=== PATIENT | male | born 1990 | race Hispanic/Latino ===

== ENCOUNTER 2017-01-27 16:17 | Observation (INO) | payer OTHER ==
[2017-01-27 16:23] VITALS: RESP 16
--- NOTE | 2017-01-27 17:08 | C.PDOC ---
History Of Present Illness 26 y/o male presents to the ED requesting alcohol detox. Pt with history alcohol abuse, drinks 2-3 pints liquor today; drank 1/2 pint today. Pt denies vomiting, chest pain, SOB, fever or any other complaints at this time. PMHx depression, anxiety. Time Seen by Provider: 01/27/17 16:55 Chief Complaint (Nursing): Substance Abuse History Per: Patient History/Exam Limitations: no limitations Current Symptoms Are (Timing): Still Present Suicide/Self Injury Attempted (Context): None Modifying Factor(s): Alcohol Severity: Mild Involuntary Hold By: None Recent travel outside of the [place]: No Past Medical History Reviewed: Historical Data, Nursing Documentation, Vital Signs Vital Signs: Last Vital Signs Temp 98.4 F 01/27/17 16:20 Pulse 84 01/27/17 16:20 Resp 16 01/27/17 16:20 BP 134/79 01/27/17 16:20 Pulse Ox 95 01/27/17 20:14 Family History: States: Unknown Family Hx - Social History Hx Alcohol Use: Yes Hx Substance Use: Yes Review Of Systems Except As Marked, All Systems Reviewed And Found Negative. Constitutional: Negative for: Fever Cardiovascular: Negative for: Chest Pain Respiratory: Negative for: Shortness of Breath Gastrointestinal: Negative for: Vomiting Physical Exam - Physical Exam Appears: Non-toxic, No Acute Distress Skin: Warm, Dry, No Rash Head: Atraumatic, Normacephalic Neck: Normal, Normal ROM, Supple Chest: Symmetrical Cardiovascular: Rhythm Regular, No Murmur Respiratory: Normal Breath Sounds, No Rales, No Rhonchi, No Wheezing Gastrointestinal/Abdominal: Normal Exam, Soft, No Tenderness, No Guarding, No Rebound Extremity: Normal ROM Extremity: Bilateral: Atraumatic Neurological/Psych: Oriented x3, Normal Speech, Normal Motor, Normal Sensation, Other (mild tremor) ED Course And Treatment - Laboratory Results Result Diagrams: 01/27/17 18:24 01/27/17 17:38 Lab Interpretation: No Acute Changes O2 Sat by Pulse Oximetry: 95 (room air) Pulse Ox Interpretation: Normal Progress Note: Pt seen earlier today at [place] for alcohol detox; complaint of SI. Plan: UA, labs. 8:10 Patient is medically cleared but there are no detox beds at this time. He will remain in ED observation and will return to [facility] in the morning. ED OBSERVATION Date of observation admission: 01/27/17 Time of observation admission: 20:13 - Observation admission statement Patient is being placed in observation because:: alcohol intoxication - Goals of Observation Goals of observation are:: sobriety and return to [facility] in the morning. - Progress Note Progress Note: 01/27/17 23:22 Patient sleeping quietly. Disposition - Disposition Disposition Time: 00:00 Condition: STABLE - Clinical Impression Clinical Impression: Alcohol abuse, Alcohol-induced mood disorder - Scribe Statement The provider has reviewed the documentation as recorded by the Duy Aleman Provider Attestation: All medical record entries made by the Duy were at my direction and personally dictated by me. I have reviewed the chart and agree that the record accurately reflects my personal performance of the history, physical exam, medical decision making, and the department course for this patient. I have also personally directed, reviewed, and agree with the discharge instructions and disposition. Physician Patient Turnover Patient Signed Over To: Wm Tadeo Handoff Comments: Pending sobriety and discharge to [facility] in the morning.
[2017-01-27 17:48] LABS: CHLORIDE 100 mmol/L (98-107); SODIUM 139 mmol/L (132-148)
[2017-01-27 17:49] LABS: POTASSIUM 3.7 mmol/L (3.6-5.2)
[2017-01-27 17:51] LABS: ALB/GLOB RATIO 1.7 (1.0-2.1); ALKALINE PHOSPHATASE 64 U/L (38-126); ALT/SGPT 38 U/L (21-72); AST/SGOT 31 U/L (17-59); BILIRUBIN,TOTAL 0.9 mg/dL (0.2-1.3); BLOOD UREA NITROGEN 17 mg/dL (9-20); CALCIUM 7.8 mg/dl (8.6-10.4); CARBON DIOXIDE 25 mmol/L (22-30); GFR AFRICAN-AMERICAN > 60; GLUCOSE,RANDOM 74 mg/dL (75-110); TOTAL PROTEIN 6.8 g/dL (6.3-8.3)
[2017-01-27 17:52] LABS: ALCOHOL SERUM 149 mg/dl (0-10)
[2017-01-27 18:26] LABS: RBC URINE < 1 /hpf (0-3); URINE BILIRUBIN NEGATIVE (NEGATIVE); URINE BLOOD NEGATIVE (NEGATIVE); URINE COLOR Yellow (YELLOW); URINE GLUCOSE (UA) NORMAL (Normal); URINE KETONE NEGATIVE (NEGATIVE); URINE LEUKOCYTE ESTERASE NEG Leu/uL (Negative); URINE PROTEIN NEGATIVE (NEGATIVE); URINE UROBILINOGEN NORMAL mg/dL (0.2-1.0); WBC URINE < 1 /hpf (0-5)
[2017-01-27 18:44] LABS: BASO % 0.6 % (0.0-2.0); EOS # 0.1 K/uL (0.0-0.7); EOS % 1.3 % (0.0-4.0); HEMATOCRIT 41.6 % (35.0-51.0); LYMPH % 31.5 % (20.0-40.0); MEAN CELL VOLUME 91.3 fL (80.0-94.0); MEAN CORPUSCULAR HEMOGLOBIN 30.7 pg (27.0-31.0); MEAN CORPUSCULAR HGB CONC 33.7 g/dL (33.0-37.0); MEAN PLATELET VOLUME 8.1 fL (7.2-11.7); MONO # 0.4 K/uL (0.0-0.8); MONO % 5.9 % (0.0-10.0); RED CELL DISTRIBUTION WIDTH 13.5 % (11.5-14.5); WHITE BLOOD COUNT 6.2 K/uL (4.8-10.8)
[2017-01-28 06:04] VITALS: BP 136/77; PULSE 54; TEMP 97.7; O2SAT 99
== END 2017-01-28 05:55 | disposition home or self-care (01) ==
LOC: C.ER 16:17 → C.9OBSV 20:14
PROVIDERS: ADMIT Emergency Medicine; ATTEND Emergency Medicine
DX: F10.14 Alcohol abuse with alcohol-induced mood disorder (principal); F10.120 Alcohol abuse with intoxication, uncomplicated; F12.10 Cannabis abuse, uncomplicated; Y90.6 Blood alcohol level of 120-199 mg/100 ml
CPT/HCPCS: 80053; 81001; 82948; 85025; G0378; G0480

== ENCOUNTER 2017-01-28 11:51 | Inpatient (IN) | payer SELFPAY ==
[2017-01-28 12:24] LABS: BASO % 0.5 % (0.0-2.0); EOS # 0.1 K/uL (0.0-0.7); EOS % 0.9 % (0.0-4.0); HEMATOCRIT 42.4 % (35.0-51.0); LYMPH # 1.2 K/uL (1.0-4.3); LYMPH % 20.8 % (20.0-40.0); MEAN CELL VOLUME 90.2 fL (80.0-94.0); MEAN CORPUSCULAR HEMOGLOBIN 30.7 pg (27.0-31.0); MONO # 0.4 K/uL (0.0-0.8); MONO % 7.2 % (0.0-10.0)
[2017-01-28 12:26] LABS: RBC URINE 2 /hpf (0-3); URINE BILIRUBIN NEGATIVE (NEGATIVE); URINE BLOOD NEGATIVE (NEGATIVE); URINE COLOR Yellow (YELLOW); URINE GLUCOSE (UA) NORMAL (Normal); URINE KETONE TRACE mg/dL (NEGATIVE); URINE LEUKOCYTE ESTERASE NEG Leu/uL (Negative); URINE PROTEIN NEGATIVE (NEGATIVE); URINE UROBILINOGEN NORMAL mg/dL (0.2-1.0); WBC URINE 1 /hpf (0-5)
[2017-01-28 12:32] LABS: CHLORIDE 99 mmol/L (98-107); POTASSIUM 3.9 mmol/L (3.6-5.2); SODIUM 139 mmol/L (132-148)
[2017-01-28 12:34] LABS: GFR AFRICAN-AMERICAN > 60
[2017-01-28 12:35] LABS: ALB/GLOB RATIO 1.5 (1.0-2.1); ALKALINE PHOSPHATASE 79 U/L (38-126); ALT/SGPT 38 U/L (21-72); AST/SGOT 39 U/L (17-59); BILIRUBIN,TOTAL 1.8 mg/dL (0.2-1.3); BLOOD UREA NITROGEN 17 mg/dL (9-20); CALCIUM 8.8 mg/dl (8.6-10.4); CARBON DIOXIDE 25 mmol/L (22-30); GLUCOSE,RANDOM 92 mg/dL (75-110); TOTAL PROTEIN 7.5 g/dL (6.3-8.3)
[2017-01-28 12:36] LABS: ALCOHOL SERUM 51 mg/dl (0-10)
--- NOTE | 2017-01-28 13:28 | C.PDOC ---
History Of Present Illness 26 y/o male with Hx of ETOH abuse and anxiety depression brought to ED by EMS after being reported hallucinating and having suicidal thoughts at [facility] crisis clinic. As per EMS patient stated " He did not want to live anymore because of his addiction". Patient reports drinking 2 pints of ETOH daily and admits to drinking 1/2 a pint this morning. Patient's last treatment for anxiety depression was 2 years ago. No other complaints at this time Time Seen by Provider: 01/28/17 13:15 Chief Complaint (Nursing): Psychiatric Evaluation History Per: Patient History/Exam Limitations: no limitations Onset/Duration Of Symptoms: Days Current Symptoms Are (Timing): Still Present Modifying Factor(s): Alcohol Associated Symptoms: Anxiety, Depression. denies: Suicidal Plan Past Medical History Reviewed: Historical Data, Nursing Documentation, Vital Signs Vital Signs: Last Vital Signs Temp 98.9 F 01/28/17 11:55 Pulse 80 01/28/17 11:55 Resp 18 01/28/17 11:55 BP 138/90 01/28/17 11:55 Pulse Ox 98 01/28/17 13:28 - Medical History PMH: Anxiety, Depression Family History: States: Unknown Family Hx - Social History Hx Alcohol Use: Yes Hx Substance Use: Yes - Immunization History Hx Tetanus Toxoid Vaccination: No Hx Influenza Vaccination: No Hx Pneumococcal Vaccination: No Review Of Systems Except As Marked, All Systems Reviewed And Found Negative. Constitutional: Negative for: Fever, Chills Gastrointestinal: Negative for: Nausea, Vomiting, Diarrhea Skin: Negative for: Rash Neurological: Negative for: Weakness, Headache, Dizziness Psych: Positive for: Anxiety, Depression, Suicidal ideation Physical Exam - Physical Exam Appears: No Acute Distress Skin: Normal Color, Warm Head: Atraumatic, Normacephalic Oral Mucosa: Moist Cardiovascular: Rhythm Regular Respiratory: Normal Breath Sounds, No Rales, No Rhonchi, No Wheezing Extremity: Normal ROM Neurological/Psych: Oriented x3 ED Course And Treatment - Laboratory Results Result Diagrams: 01/28/17 12:19 01/28/17 12:19 O2 Sat by Pulse Oximetry: 98 (RA) Pulse Ox Interpretation: Normal Medical Decision Making Medical Decision Makin:52pm : On re-evaluation patient is sleeping and calm in room Disposition - Disposition Disposition: HOSPITALIZED Disposition Time: 13:26 Condition: GUARDED - Clinical Impression Clinical Impression: Alcohol abuse, Acute depression - PA / [employer] / Resident Statement MD/DO has reviewed & agrees with the documentation as recorded. MD/DO has examined the patient and agrees with the treatment plan. - Scribe Statement The provider has reviewed the documentation as recorded by the Duy Stevenson All medical record entries made by the Duy were at my direction and personally dictated by me. I have reviewed the chart and agree that the record accurately reflects my personal performance of the history, physical exam, medical decision making, and the department course for this patient. I have also personally directed, reviewed, and agree with the discharge instructions and disposition. Decision To Admit - Pt Status Changed To: Hospital Disposition Of: Inpatient - Admit Certification Admit to Inpatient:: After my assessment, the patient will require hospitalization for at least two midnights. This is because of the severity of symptoms shown, intensity of services needed, and/or the medical risk in this patient being treated as an outpatient. - InPatient: Physician Admission Certification: I certify that this patient requires 2 or more midnights of care for the following reason:: needs inpatient psych - . Bed Request Type: Psychiatry Patient Diagnosis: Alcohol abuse, Acute depression
[2017-01-28 14:11] VITALS: O2SAT 98
[2017-01-28] MEDS: Multiple Vitamins Tab PO SCH (15:44)
[2017-01-29] MEDS: Multiple Vitamins Tab PO SCH (10:07)
--- NOTE | 2017-01-29 12:30 | PCM.PSYCH ---
Initial Psychiatric Evaluation - Initial Psychiatric Evaluation Type of Admission: Voluntary Legal Status: Capacity Chief Complaint (in patient's own words): I just want to end it all History of Present Illness and Precipitating Events: Patient is 26 year male who lives with roommates in [place]. Patient' s highest level of education is college. 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 He states it would just be easier to "end everything." He has a history of alcohol abuse that began at age 16 and says he cannot stop drinking, which is making him depressed and suicidal. He drinks 2-3 pints of hard liquor/day, and his last drink was yesterday. Patient states he drinks enough in the morning to hold off withdrawal symptoms. He also puts vodka in water bottles to drink throughout the day. Patient first realized his alcohol use was problematic at age 21 when others began mentioning it to him, as he was choosing alcohol over family and work obligations. Patient denies any suicide attempts, and states that it would just be easier if he was . He states he would not be able to kill himself while he is sober. Patient states he has a history of depression and last saw a psychiatrist 10 years ago when he was freshman in college for depression and anxiety. He states he took the medications for a while but then stopped because he thought he could just get over it and didn't think mental illness was real. Patient was also hospitalized at [facility] in 2012 for withdrawal hallucinations, both auditory and visual. He has had severe withdrawal 5 times, and states he saw shadows and snakes, and thought people were talking about him when they weren't. Patient states that his mind is constantly racing and he used alcohol and marijuana to slow his mind down, saying, "I didn't stop thinking about it, I just stopped caring about it." He states he has social anxiety and obsesses over things like if he upset someone or not. He states he has a problem finishing things that he starts, and has lots of plans, jobs, and trips planned. On exam, his affect is blunted and depressed. He is shaking and saying he is in withdrawal, for which he is getting librium. He complains of shakes, headaches, chills, sweating, and severe anxiety. He reports auditory hallucinations that someone is calling his name visual hallucinations and reports persecutory delusions that people are following him. On discharge, patient wants to go to in-patient rehab because he does not trust himself to be around alcohol. PMH: unknown Allergies: none Current Medications: Active Medications Generic Name Dose Route Start Last Admin Trade Name Freq PRN Reason Stop Dose Admin Benztropine Mesylate 2 mg 01/28/17 13:31 Cogentin PO Q6 PRN Extra Pyramidal Symptoms Chlordiazepoxide 50 mg 01/28/17 13:31 01/29/17 10:07 Librium PO 50 mg Q4 PRN Administration Symptoms of alcohol withdrawl Chlordiazepoxide 25 mg 01/28/17 18:00 01/28/17 23:00 Librium PO 02/02/17 17:59 25 mg Q6 BETINA Administration Taper Folic Acid 1 mg 01/28/17 13:45 01/29/17 10:08 Folic Acid PO 1 mg DAILY BETINA Administration Haloperidol 5 mg 01/28/17 13:31 Haldol PO Q8 PRN Moderate Agitation Haloperidol Lactate 5 mg 01/28/17 13:31 Haldol IM Q8 PRN Moderate Agitation Multivitamins 1 tab 01/28/17 13:45 01/29/17 10:07 Hexavitamin PO 1 tab DAILY BETINA Administration Thiamine HCl 100 mg 01/28/17 13:45 01/29/17 10:07 Vitamin B1 Tab PO 100 mg DAILY BETINA Administration Trazodone HCl 50 mg 01/28/17 22:00 01/28/17 22:57 Desyrel PO 50 mg HS BETINA Administration Past Psychiatric History - Past Psychiatric History Previous Treatment History: None Pertinent Medical Hx (Current Medical&Sleep Prob, Allergies): Allergies Allergy/AdvReac Type Severity Reaction Status Date / Time No Known Allergies Allergy Verified 01/28/17 12:07 No Known Home Med 01/27/17 Review of Systems - Review of Systems All systems: reviewed and no additional remarkable complaints except - Psychiatric Psychiatric: Anxiety, Irritability, Mood Swings, Suicidal Ideation Mental Status Examination - Personal Presentation Personal Presentation: Looks older than stated age - Affect Affect: Constricted, Depressed - Motor Activity Motor Activity: Psychomotor Retardation - Reliability in Providing Information Reliability in Providing Information: Poor, due to alteration in thoughts, Poor , due to altered mood - Speech Speech: Disorganized - Mood Mood: Depressed, Anxious - Formal Thought Process Formal Thought Process: Delusions, Paranoia, Flight of ideas - Hallucinations/Delusions Hallucinations: Auditory Delusions: Persecution - Obsessions/Compulsions Obsessions: No Compulsions: No - Cognitive Functions Orientation: Person, Place, Situation, Time Sensorium: Alert Attention/Concentration: Attentive Abstract Thinking: Wayne Estimate of Intelligence: Below average Judgement: Imparied, as evidence by: Poor judgement, Imparied, as evidence by: Lack of insight into illness - Risk Risk: Suicidal, Withdrawal, Diminished functioning - Strength & Assets Inventory Strength & Assets Inventory: Cooperative DSM 5 DX - DSM 5 DSM 5 Diagnosis: Bipolar disorder mixed severe with psychotic features Alcohol use disorder severe Alcohol withdrawal uncomplicated - Recommended/Plan of Treatment Treatment Recommendations and Plan of Treatment: Bipolar disorder mixed severe with psychotic features CBT Psychoeducation Supportive therapy, group therapy, individual therapy Zoloft 25 mg by mouth daily Neurontin 300 mg by mouth 3 times a day Trazodone 50 mg by mouth daily at bedtime Alcohol use disorder severe CBT Psychoeducation Supportive therapy, individual therapy Use [place] for abstinence Alcohol withdrawal uncomplicated CBT Psychoeducation Supportive therapy, individual therapy Librium when necessary Start Librium taper Start folic acid/thiamine/multivitamin - Smoking Cessation Smoking Cessation Initiated: No
[2017-01-30] MEDS: Multiple Vitamins Tab PO SCH (10:34)
--- NOTE | 2017-01-30 18:13 | PCM.PYCHPN ---
Psychiatric Progress Note - Psychiatric Progress Note Patient seen today, length of contact: 15 minutes Patient Chief Complaint: I'm feeling much better Problems Identified/Issues Discussed: Patient seen. Chart reviewed. Case discussed with the staff. Issues related to illness and treatment were discussed with the patient. Reported compliant with treatment with no adverse affects. Tolerating treatment very well. Patient is on Librium detox protocol. Patient reported no suicidal ideations with treatment. At the time of evaluation, she was awake alert oriented 3, had no delusions, no auditory or visual hallucinations, no suicidal ideations or homicidal ideations. Medical Problems: None reported Diagnostic Results: Review DSM 5 Symptoms Update: Improvement in symptoms Medication Change: No Medical Record Reviewed: Yes Mental Status Examination - Cognitive Function Orientation: Person, Place, Situation, Time Memory: Intact Attention: WNL Concentration: WNL Association: WNL Fund of Knowledge: [facility] Decription of patient's judgement and insights: Fair - Mood Mood: Depressed - Affect Affect: Depressed - Speech Speech: Appropriate - Formal Thought Process Formal Thought Process: No Impairment - Suicidal Ideation Suicidal Ideation: No - Homicidal Ideation Homicidal Ideation: No Goal/Treatment Plan - Goal/Treatment Plan Need for Continued Stay: Remain at risks for inpatient hospitalization, Discharge may exacerbated symptoms, Severe functional impairment Progress Toward Problem(s) and Goals/Treatment Plan: Patient education Supportive therapy Continue treatment as before Estimated Date of D/C: 02/05/17 - Smoking Cessation Smoking Cessation Initiated: Yes
[2017-01-31] MEDS: Multiple Vitamins Tab PO SCH (09:10)
--- NOTE | 2017-01-31 16:07 | PCM.PYCHPN ---
Psychiatric Progress Note - Psychiatric Progress Note Patient seen today, length of contact: 15 minutes Patient Chief Complaint: I'm feeling much better Problems Identified/Issues Discussed: Patient seen. Chart reviewed. Case discussed with the staff. Issues related to illness and treatment were discussed with the patient. Reported compliant with treatment with no adverse affects. Tolerating treatment very well. Patient is on Librium detox protocol. Patient reported no suicidal ideations with treatment. At the time of evaluation, she was awake alert oriented 3, had no delusions, no auditory or visual hallucinations, no suicidal ideations or homicidal ideations. Medical Problems: None reported Diagnostic Results: Review DSM 5 Symptoms Update: Improving with treatment Medication Change: No Medical Record Reviewed: Yes Mental Status Examination - Cognitive Function Orientation: Person, Place, Situation, Time Memory: Intact Attention: WNL Concentration: WNL Association: WNL Fund of Knowledge: [facility] Decription of patient's judgement and insights: Fair - Mood Mood: Depressed - Affect Affect: Depressed - Speech Speech: Appropriate - Formal Thought Process Formal Thought Process: No Impairment Psychotic Thoughts and Behaviors: None - Suicidal Ideation Suicidal Ideation: No - Homicidal Ideation Homicidal Ideation: No Goal/Treatment Plan - Goal/Treatment Plan Need for Continued Stay: Remain at risks for inpatient hospitalization, Discharge may exacerbated symptoms, Severe functional impairment Progress Toward Problem(s) and Goals/Treatment Plan: Patient education Supportive therapy Continue treatment as before Estimated Date of D/C: 02/05/17 - Smoking Cessation Smoking Cessation Initiated: Yes
[2017-02-01] MEDS: Multiple Vitamins Tab PO SCH (09:56)
--- NOTE | 2017-02-01 10:07 | PCM.PYCHPN ---
Psychiatric Progress Note - Psychiatric Progress Note Patient seen today, length of contact: 15 minutes Patient Chief Complaint: 'I feel tired.' Problems Identified/Issues Discussed: Patient seen and evaluated, chart reviewed and discussed with the nurse. The patient says he has suffered from major depression most of his life and was diagnosed with depression and anxiety 10 years ago and self-medicated with pot and alcohol. He says that his grandfather in 2012 and his grandmother about 1 month ago which worsened his depression. He states that he suffers from panic attacks about once a month with each episode lasting about 10-15min. He states that these episodes are brought on by social events. He also complains of anxiety and states that he feeling very depressed and suicidal and he doesnt want to live anymore. He denies any auditory hallucinations currently but stated that yesterday he was seeing shadows and black things crawling on the cormier, visual hallucinations. He also reports persecutory delusions. He says that he slept well after having taken Trazodone last night. He appears to be very depressed, isolated, has a flat affect but is kempt and has organized speech. He is taking medication and denies any side effects Medication Change: Yes (increase Zoloft, start Risperdal) Medical Record Reviewed: Yes Mental Status Examination - Cognitive Function Orientation: Person, Place, Situation, Time Memory: Intact Attention: Poor Concentration: Poor Association: Loose Fund of Knowledge: Poor - Mood Mood: Depressed, Anxious - Affect Affect: Constricted, Depressed - Speech Speech: Appropriate, Soft - Formal Thought Process Formal Thought Process: Hallucinations, Delusions - Suicidal Ideation Suicidal Ideation: No - Homicidal Ideation Homicidal Ideation: No Goal/Treatment Plan - Goal/Treatment Plan Need for Continued Stay: Remain at risks for inpatient hospitalization, Discharge may exacerbated symptoms, Severe functional impairment Progress Toward Problem(s) and Goals/Treatment Plan: Bipolar disorder mixed severe with psychotic features CBT Psychoeducation Supportive therapy, group therapy, individual therapy Zoloft 100 mg by mouth daily Risperdal 0.5 mg by mouth twice a day Neurontin 300 mg by mouth 3 times a day Trazodone 50 mg by mouth daily at bedtime Alcohol use disorder severe CBT Psychoeducation Supportive therapy, individual therapy Use [place] for abstinence Alcohol withdrawal uncomplicated CBT Psychoeducation Supportive therapy, individual therapy Librium when necessary Librium taper Folic acid/thiamine/multivitamin Estimated Date of D/C: 02/05/17 - Smoking Cessation Smoking Cessation Initiated: No
[2017-02-02] MEDS: Multiple Vitamins Tab PO SCH (09:51)
--- NOTE | 2017-02-02 15:53 | PCM.PYCHPN ---
Psychiatric Progress Note - Psychiatric Progress Note Patient seen today, length of contact: 15 minutes Patient Chief Complaint: 'I m still feeling depressed' Problems Identified/Issues Discussed: Patient seen and evaluated, chart reviewed and discussed with the nurse. As per the staff, patient still appears isolated, depressed and withdrawn. Patient reports improvement in his and improvement in the voices were still reports depressed mood and at times feelings of hopelessness or helplessness. However he denies any suicidal ideation or homicidal ideation. He is taking medication and denies any side effects. Supportive therapy and psychoeducation were given. Medication Change: Yes (increase Zoloft, start Risperdal) Medical Record Reviewed: Yes Mental Status Examination - Cognitive Function Orientation: Person, Place, Situation, Time Memory: Intact Attention: WNL Concentration: Poor Association: WNL Fund of Knowledge: Poor - Mood Mood: Depressed, Anxious - Affect Affect: Constricted, Depressed - Speech Speech: Appropriate - Formal Thought Process Formal Thought Process: Hallucinations, Delusions, Paranoia - Suicidal Ideation Suicidal Ideation: No - Homicidal Ideation Homicidal Ideation: No Goal/Treatment Plan - Goal/Treatment Plan Need for Continued Stay: Remain at risks for inpatient hospitalization, Discharge may exacerbated symptoms, Severe functional impairment Progress Toward Problem(s) and Goals/Treatment Plan: Bipolar disorder mixed severe with psychotic features CBT Psychoeducation Supportive therapy, group therapy, individual therapy Zoloft 100 mg by mouth daily Risperdal 0.5 mg by mouth twice a day Neurontin 300 mg by mouth 3 times a day Trazodone 50 mg by mouth daily at bedtime Alcohol use disorder severe CBT Psychoeducation Supportive therapy, individual therapy Use [place] for abstinence Alcohol withdrawal uncomplicated CBT Psychoeducation Supportive therapy, individual therapy Librium when necessary Librium taper Folic acid/thiamine/multivitamin Estimated Date of D/C: 02/05/17 - Smoking Cessation Smoking Cessation Initiated: No
[2017-02-03] MEDS: Multiple Vitamins Tab PO SCH (09:27)
--- NOTE | 2017-02-03 09:46 | PCM.PYCHPN ---
Psychiatric Progress Note - Psychiatric Progress Note Patient seen today, length of contact: 15 minutes Patient Chief Complaint: 'I m feeling much better.' Problems Identified/Issues Discussed: Patient seen and evaluated, chart reviewed and discussed with the nurse. patient reports a dramatic improvement in the mood and psychosis. He reports that he is doing much better and his family wants to get him into a inpatient rehabilitation. He reports improvement in the visual hallucinations and delusions. He reports improvement in sleep and appetite. He is taking medication and denied any side effects. Supportive therapy and psychoeducation were given. Medication Change: Yes (increase Zoloft) Medical Record Reviewed: Yes Mental Status Examination - Cognitive Function Orientation: Person, Place, Situation, Time Memory: Intact Attention: WNL Concentration: WNL Association: WNL Fund of Knowledge: WNL - Mood Mood: Depressed - Affect Affect: Constricted, Depressed - Speech Speech: Appropriate - Formal Thought Process Formal Thought Process: Delusions - Suicidal Ideation Suicidal Ideation: No - Homicidal Ideation Homicidal Ideation: No Goal/Treatment Plan - Goal/Treatment Plan Need for Continued Stay: Remain at risks for inpatient hospitalization, Discharge may exacerbated symptoms, Severe functional impairment Progress Toward Problem(s) and Goals/Treatment Plan: Bipolar disorder mixed severe with psychotic features CBT Psychoeducation Supportive therapy, group therapy, individual therapy Zoloft 200 mg by mouth daily Risperdal 1 mg by mouth qHS Cogentin 1 mg po HS Neurontin 300 mg by mouth 3 times a day Trazodone 50 mg by mouth daily at bedtime Alcohol use disorder severe CBT Psychoeducation Supportive therapy, individual therapy Use [place] for abstinence Alcohol withdrawal uncomplicated CBT Psychoeducation Supportive therapy, individual therapy Librium when necessary Librium taper Folic acid/thiamine/multivitamin Estimated Date of D/C: 02/05/17 - Smoking Cessation Smoking Cessation Initiated: No
[2017-02-04 06:57] VITALS: BP 100/63; PULSE 59; RESP 90; TEMP 98
[2017-02-04] MEDS: Multiple Vitamins Tab PO SCH (09:00)
--- NOTE | 2017-02-04 11:01 | PCM.PYCHPN ---
Psychiatric Progress Note - Psychiatric Progress Note Patient seen today, length of contact: 15 minutes Patient Chief Complaint: 'I feel tired.' Problems Identified/Issues Discussed: Patient seen and evaluated, chart reviewed and discussed with the nurse. The patient says he has suffered from major depression most of his life and was diagnosed with depression and anxiety 10 years ago and self-medicated with pot and alcohol. He says that his grandfather in 2012 and his grandmother about 1 month ago which worsened his depression. He states that he suffers from panic attacks about once a month with each episode lasting about 10-15min. He states that these episodes are brought on by social events. He also complains of anxiety and states that he feeling very depressed and suicidal and he doesnt want to live anymore. He denies any auditory hallucinations currently but stated that yesterday he was seeing shadows and black things crawling on the cormier, visual hallucinations. He also reports persecutory delusions. He says that he slept well after having taken Trazodone last night. He appears to be very depressed, isolated, has a flat affect but is kempt and has organized speech. He is taking medication and denies any side effects Medication Change: Yes (increase Zoloft) Medical Record Reviewed: Yes Mental Status Examination - Cognitive Function Orientation: Person, Place, Situation, Time Memory: Intact Attention: WNL Concentration: WNL Association: WNL Fund of Knowledge: WNL - Mood Mood: Depressed - Affect Affect: Depressed - Speech Speech: Appropriate - Formal Thought Process Formal Thought Process: No Impairment - Suicidal Ideation Suicidal Ideation: No - Homicidal Ideation Homicidal Ideation: No Goal/Treatment Plan - Goal/Treatment Plan Need for Continued Stay: Remain at risks for inpatient hospitalization, Discharge may exacerbated symptoms, Severe functional impairment Progress Toward Problem(s) and Goals/Treatment Plan: Bipolar disorder mixed severe with psychotic features CBT Psychoeducation Supportive therapy, group therapy, individual therapy Zoloft 200 mg by mouth daily Change Risperdal 1 mg by mouth HS Cogentin 1 mg po bid Neurontin 300 mg by mouth 3 times a day Trazodone 50 mg by mouth daily at bedtime Alcohol use disorder severe CBT Psychoeducation Supportive therapy, individual therapy Use AK for abstinence Alcohol withdrawal uncomplicated CBT Psychoeducation Supportive therapy, individual therapy Librium when necessary Librium taper Folic acid/thiamine/multivitamin Estimated Date of D/C: 02/05/17
--- NOTE | 2017-02-04 13:04 | PCM.PYCHDC ---
Mental Status Examination - Mental Status Examination Orientation: Person, Place, Situation, Time Memory: Intact Mood: Neutral Affect: Constricted Speech: Soft Attention: WNL Concentration: WNL Association: WNL Fund of Knowledge: WNL Formal Thought Process: No Impairment Description of patient's judgement and insight: good, fair Psychotic Thoughts and Behaviors: denies any AVH Suicidal Ideation: No Current Homicidal Ideation?: No Discharge Summary - Discharge Note Reason for Hospitalization: Patient is 26 year male who lives with roommates in [place]. Patient' s highest level of education is college. 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 He states it would just be easier to "end everything." He has a history of alcohol abuse that began at age 16 and says he cannot stop drinking, which is making him depressed and suicidal. He drinks 2-3 pints of hard liquor/day, and his last drink was yesterday. Patient states he drinks enough in the morning to hold off withdrawal symptoms. He also puts vodka in water bottles to drink throughout the day. Patient first realized his alcohol use was problematic at age 21 when others began mentioning it to him, as he was choosing alcohol over family and work obligations. Patient denies any suicide attempts, and states that it would just be easier if he was . He states he would not be able to kill himself while he is sober. Patient states he has a history of depression and last saw a psychiatrist 10 years ago when he was freshman in college for depression and anxiety. He states he took the medications for a while but then stopped because he thought he could just get over it and didn't think mental illness was real. Patient was also hospitalized at [facility] in 2012 for withdrawal hallucinations, both auditory and visual. He has had severe withdrawal 5 times, and states he saw shadows and snakes, and thought people were talking about him when they weren't. Patient states that his mind is constantly racing and he used alcohol and marijuana to slow his mind down, saying, "I didn't stop thinking about it, I just stopped caring about it." He states he has social anxiety and obsesses over things like if he upset someone or not. He states he has a problem finishing things that he starts, and has lots of plans, jobs, and trips planned. On exam, his affect is blunted and depressed. He is shaking and saying he is in withdrawal, for which he is getting librium. He complains of shakes, headaches, chills, sweating, and severe anxiety. He reports auditory hallucinations that someone is calling his name visual hallucinations and reports persecutory delusions that people are following him. On discharge, patient wants to go to in-patient rehab because he does not trust himself to be around alcohol. Consultations:: List each consultation separately and include: 1. Reason for request. 2. Findings. 3. Follow-up Summary of Hospital Course include:: 1. Description of specific treatment plan utilized for patients during their course of treatmen. 2. Summarize the time- course for resolution of acute symptoms and/or regressed behaviors. 3. Describe issues identified and worked on during hospitalization. 4. Describe medication utilized. 5. Describe medical problems identified and treated. 6. Reassessment of suicide risk Summary of Hospital Course: During the course of his stay, patient (pt) started progressively improving and he no longer remained irritable, depressed, suicidal and paranoid. His mood and paranoia were improved and he started attending groups and meetings and started socializing. Patient denied any feelings of hopelessness, helplessness, and worthlessness, denied any problem with the sleep or appetite, denied suicidal ideation or homicidal ideation. Pt denied any auditory or visual hallucinations. Some changes were made in his current medications and patient was discharged on following medications. He tolerated these medications very well and denied any side effects. He was discharged with a plan to go to inpatient rehabilitation. - Final Diagnosis (DSM 5) Condition upon Discharge: GOOD DSM 5: Bipolar disorder mixed severe with psychotic features Alcohol use disorder severe Alcohol withdrawal uncomplicated Disposition: HOME/ ROUTINE Follow-up Treatment Plan: Education: Pt was educated and counseled about the risks and benefits of taking and not taking medications. Pt was educated and counseled about the risks of drinking and abusing drugs. Pt was educated and counseled to go to the ER or call 911 if pt develop suicidal ideation or homicidal ideation, worsening of symptoms or severe side effects of the meds. Prescriptions/Medication Reconciliation: Gabapentin [Neurontin] 300 mg PO TID #90 cap risperiDONE [RisperDAL Tab] 1 mg PO HS #30 tab Sertraline [Zoloft] 100 mg PO DAILY #60 tab traZODone [Desyrel] 50 mg PO HS PRN #30 tab PRN Reason: Insomnia - Smoking Cessation Smoking Cessation Medication prescribed: No - Antipsychotic Medications Pt discharged on 2 or more routine antipsychotic medications: No
== END 2017-02-04 14:35 | disposition home or self-care (01) | DRG 885 ==
LOC: C.ER 11:51 → C.5E 13:28
PROVIDERS: ADMIT Psychiatry & Neurology Psychiatry; ATTEND Psychiatry & Neurology Psychiatry
PROC: GZHZZZZ Group Psychotherapy (ICD-10-PCS; principal; 2017-01-28)
PROC: GZ58ZZZ Individual Psychotherapy, Cognitive-Behavioral (ICD-10-PCS; 2017-01-28)
PROC: GZ56ZZZ Individual Psychotherapy, Supportive (ICD-10-PCS; 2017-01-28)
PROC: HZ2ZZZZ Detoxification Services for Substance Abuse Treatment (ICD-10-PCS; 2017-01-28)
PROC: HZ52ZZZ Individual Psychotherapy for Substance Abuse Treatment, Cognitive-Behavioral (ICD-10-PCS; 2017-01-28)
PROC: HZ59ZZZ Individual Psychotherapy for Substance Abuse Treatment, Supportive (ICD-10-PCS; 2017-01-28)
PROC: HZ56ZZZ Individual Psychotherapy for Substance Abuse Treatment, Psychoeducation (ICD-10-PCS; 2017-01-28)
DX: F31.64 Bipolar disorder, current episode mixed, severe, with psychotic features (principal); R45.851 Suicidal ideations; F10.230 Alcohol dependence with withdrawal, uncomplicated; F40.10 Social phobia, unspecified; F41.0 Panic disorder [episodic paroxysmal anxiety]; Z79.899 Other long term (current) drug therapy; F41.8 Other specified anxiety disorders